=== PATIENT | female | born 1975 | race Two or more races ===

== ENCOUNTER 2021-11-27 16:46 | Emergency (ER) | payer OTHER ==
[~2021-11-27] VITALS: Ht 172.7 cm; Wt 68.9 kg
[2021-11-27 16:53] VITALS: BP 137/86
== END 2021-11-27 18:25 | disposition left against medical advice (07) ==
LOC: ER 16:46
DX: R10.9 Unspecified abdominal pain (principal); Z53.21 Procedure and treatment not carried out due to patient leaving prior to being seen by health care provider